=== PATIENT | female | born 1990 | race Two or more races ===

== ENCOUNTER 2017-01-11 11:18 | Day surgery (SDC) | payer OTHER ==
[2017-01-07 09:32] LABS: APPEARANCE,URINE CLEAR; BILIRUBIN,URINE NEGATIVE (NEGATIVE); GLUCOSE, URINE NEGATIVE (NEGATIVE); KETONES,URINE NEGATIVE (NEGATIVE); LEUKOCYTE ESTERASE,URINE NEGATIVE (NEGATIVE); NITRITE,URINE NEGATIVE (NEGATIVE); PROTEIN,URINE NEGATIVE (NEGATIVE); UROBILINOGEN,URINE NEGATIVE mg/dL (<2.0)
[2017-01-07 10:00] LABS: HEMOGLOBIN 13.2 g/dL (12.0-15.5); HGB HCT DIFFERENCE 0.6; MEAN CORPUSCULAR HGB CONC 33.8 g/dL (32.0-36.0); MEAN CORPUSCULAR VOLUME 86 fl (80-97); RED BLOOD COUNT 4.55 10^6/uL (3.72-5.28); RED CELL DISTRIBUTION WIDTH 12.7 % (11.5-14.0); WHITE BLOOD COUNT 5.9 10^3/uL (4.0-10.5)
[2017-01-07 10:13] LABS: ALANINE AMINOTRANSFERASE 27 U/L (9-52); ALKALINE PHOSPHATASE 72 U/L (38-126); ANION GAP 13 (5-19); ASPARTATE AMINO TRANSFERASE 17 U/L (14-36); BILIRUBIN,DIRECT 0.2 mg/dL (0.0-0.4); BILIRUBIN,TOTAL 0.4 mg/dL (0.2-1.3); BLOOD UREA NITROGEN 15 mg/dL (7-20); CALCIUM 9.2 mg/dL (8.4-10.2); CARBON DIOXIDE 26 mmol/L (22-30); CHLORIDE 103 mmol/L (98-107); CREATININE RESULT 0.74 mg/dL (0.52-1.25); GLUCOSE 94 mg/dL (75-110); POTASSIUM 4.3 mmol/L (3.6-5.0); SODIUM 141.9 mmol/L (137-145)
[~2017-01-11 11:18] MED LIST: DOXYCYCLINE HYCLATE 100 MG TABLET PO PRN; GABAPENTIN 400 MG CAPSULE PO PRN; LIDOCAINE 0.5% INJ-PF (5 MG/ML) 50 ML SDV SUBCUT PRN; RINGERS SOLUTION,LACTATED 1,000 ML IV PRN
[2017-01-11] MEDS ORDERED: LIDOCAINE 2% INJ-PF (20 MG/ML) 10 ML AMPUL ONE (12:34)
[2017-01-11] MEDS ORDERED: HYDROMORPHONE HCL INJ/PF 2 MG/ML AMPULE ONE (12:35)
[2017-01-11] MEDS ORDERED: PROPOFOL INJ 200 MG/20 ML VIAL IV ONE (12:35)
[2017-01-11] MEDS ORDERED: MIDAZOLAM 2 MG/2 ML INJ ONE (12:35)
[2017-01-11] MEDS ORDERED: DEXAMETHASONE SOD PHOSPHATE INJ 4 MG/1 ML VIAL ONE (12:35)
[2017-01-11] MEDS ORDERED: ONDANSETRON HCL INJ/PF 4 MG/2 ML SDV ONE (12:35)
[2017-01-11] MEDS ORDERED: FENTANYL CITRATE INJ/PF 100 MCG/2 ML AMPUL ONE (12:35)
[2017-01-11] MEDS ORDERED: IBUPROFEN INJ 800 MG/8 ML VIAL IV ONE (12:36)
[2017-01-11] MEDS ORDERED: LIDOCAINE 1% INJ-PF (10 MG/ML) 30 ML SDV ONE (12:37)
[2017-01-11] MEDS ORDERED: BUPIVACAINE HCL 0.25% /EPINEPHRINE INJ/PF 30 ML SDV ONE (12:37)
[2017-01-11] MEDS ORDERED: METOCLOPRAMIDE HCL INJ/PF 10 MG/2 ML SDV ONE (12:50)
[2017-01-11] MEDS ORDERED: MORPHINE SULFATE 10 MG/ML INJ IV PRN (13:30)
[2017-01-11] MEDS ORDERED: FENTANYL CITRATE INJ/PF 100 MCG/2 ML AMPUL IV PRN ×3 (13:30)
[2017-01-11] MEDS ORDERED: DIPHENHYDRAMINE HCL 50 MG/ML VIAL IV PRN (13:30)
[2017-01-11] MEDS ORDERED: OXYCODONE-ACETAMINOPHEN 5-325 MG TABLET PO PRN ×3 (13:30→14:35)
[2017-01-11] MEDS ORDERED: MEPERIDINE HCL/PF INJ 25 MG/1 ML DISP.SYRIN IV PRN (13:30)
[2017-01-11] MEDS ORDERED: PROMETHAZINE HCL INJ 25 MG/1 ML VIAL IV PRN ×2 (13:30)
[2017-01-11] MEDS ORDERED: ONDANSETRON HCL INJ/PF 4 MG/2 ML SDV IV PRN ×2 (13:30→14:36)
--- NOTE | 2017-01-11 13:55 | PDOC DISCHARGE SUMMARY ---
Discharge Summary (SDC) - Discharge Final Diagnosis: Endometrial polyps infertility Date of Surgery: 01/11/17 Discharge Date: 01/11/17 Condition: Good Forms: Post Operative Treatment or Instructions: Hysterscopic polypectomy Dilation and Curettage Prescriptions: Acetaminophen [Tylenol] 325 mg PO QID #100 tablet Ibuprofen [Motrin 800 mg Tablet] 800 mg PO Q8H PRN #30 tab PRN Reason: Referrals: MYAH PEARCE MD [NO LOCAL MD] - (Call mortgage processing manager RN at [phone] for questions /concerns and to make a 2 week follow up appointment. ) Discharge Diet: As Tolerated Respiratory Treatments at Home: Deep Breathing/Coughing Discharge Activity: Activity As Tolerated, Balance Activity w/Rest, Pelvic Rest - for 2 weeks, No tub bath - you may shower Home Care Assistance: None Needed Report the Following to Your Physician Immediately: Vomiting, Increase in Pain, Fever over 101 Degrees, Drainage-Foul Smelling, Increased Vaginal Bleed, Large Clots
[2017-01-11 17:26] VITALS: BP 124/88
--- NOTE | 2017-01-12 09:58 | OPERATIVE REPORT E ---
Operative Report NAME: MT MYERS : 1990 AGE: 26Y DATE OF SURGERY: 01/11/2017 ROOM: PREOPERATIVE DIAGNOSIS: SUSPECTED ENDOUTERINE ENDOMETRIAL POLYP AND INFERTILITY. POSTOPERATIVE DIAGNOSIS: SUSPECTED ENDOUTERINE ENDOMETRIAL POLYP AND INFERTILITY. OPERATION: 1. Hysteroscopic polypectomy. 2. D and C. SURGEON: MYAH PEARCE M.D. FOOT ROENTGENOLOGIST: None. ANESTHESIA: MAC. COMPLICATIONS: None. ESTIMATED BLOOD LOSS: 10 mL. URINE OUTPUT: Clear at the end of the procedure; 50 mL. FLUID DEFICIT: 100 mL of normal saline. SPECIMENS: 1. Endometrial curettings. 2. Polypoid tissue in the MyoSure trap. FINDINGS: 1. Thickened endometrial cavity. 2. Bilateral tubal ostia apparent. 3. Sessile appearing polyps in the anterior uterine wall near both the left and right cornua. INDICATIONS AND INFORMED CONSENT: The risks, benefits, and alternatives of hysteroscopic polypectomy and D and C were discussed with the patient, including but not limited to, infection; allergic reaction; scarring; blood loss; injury to the uterus including perforation, damage to the cervix, tubes, or ovaries, bladder or ureter; fistula; injury to blood vessels; need for a second operation; and potential for inability to get or endometrial scarring; need for a blood transfusion or a possible laparotomy to complete the surgery or any repair. Alternatives including, but not limited to, observation, medical management, and other surgical approaches were discussed with the patient and she consented to the above procedure. PROCEDURE: The patient was taken to the operating room where MAC and general anesthesia was undertaken. A vaginal exam was performed and the uterus was noted to be retroverted and small and mobile. She was then prepped and draped in the usual sterile fashion in a dorsal lithotomy position. Patient had been noted to just have emptied her bladder prior to surgery, so bladder was not drained at the beginning. A weighted speculum was placed into the vagina after a surgical time out was held. Anterior lip of the cervix was grasped and pulled into view. After the hysteroscope was set up and primed with normal saline, it was attempted to be placed into the cervical os. This was unable to be advanced. Jeanette dilators were used to gently dilate the cervix and the anterior cervical os. At this point, the tenaculum was noted to have torn off the cervix. Visual inspection revealed a small laceration to the anterior part of the cervix. Tenaculum was re-placed, re-grasped in a slightly different position to the patient's left of the previous site. After this, the hysteroscope was placed into the cervical os and advanced slowly into the uterine cavity under direct visualization, using hydrodissection as a means of final dilation. Next, inspection of the uterine cavity was performed revealing the above findings. The bilateral tubal ostia were visualized and several pictures were taken. At this point, the MyoSure device was introduced into the uterine cavity and was used to remove the polyps of the anterior endometrial wall near the cornua on both sides, as discussed. Some thickening of the uterine lining was also removed posteriorly with the MyoSure device. At this point, the instruments were removed from the uterus then a gentle, sharp curettage was performed until a slightly gritty texture was apparent in all areas of the uterine cavity, bimanual field. At this point, the endometrial curetting specimen was passed off and sent for pathology. Hemostasis was noted to be excellent at the cervical os. Single tooth tenaculum was removed from the cervix. At this time, a 3-0 Vicryl suture was used to repair the cervical laceration previously noted in a running fashion. Repair and hemostasis of this area was noted to be excellent. At this point, a Red Jose D catheter was used to drain the bladder; 50 mL of clear urine were drained at the end of the procedure. The total fluid deficit was noted above. All instruments and sponges were removed from the vagina and the count was correct at the end of the procedure, and the patient was taken to recovery in stable condition, and the patient was taken to recovery in stable condition. DICTATING PHYSICIAN: MYAH PEARCE M.D. [id number] PHY#: [id number] ID: [id number] JOB#: [id number] ACCT: [id number] cc:MYAH PEARCE M.D. >
== END 2017-01-11 16:10 | disposition home or self-care (01) ==
LOC: OROUT 11:18 → EDBD 13:30 → OROUT 16:10
PROVIDERS: ATTEND Obstetrics & Gynecology
PROC: 0UDB8ZX Extraction of Endometrium, Via Natural or Artificial Opening Endoscopic, Diagnostic (ICD-10-PCS; 2017-01-11)
PROC: 0UB98ZX Excision of Uterus, Via Natural or Artificial Opening Endoscopic, Diagnostic (ICD-10-PCS; principal; 2017-01-11 13:30)
DX: N84.0 Polyp of corpus uteri (principal)
CPT/HCPCS: 86900; 86901; 36415; 86850; 85027; 81025; 80053; 81001; 88305 ×2; 58558; J2250; J1100; J2765; J1170; J2405; J2704; J3490; J1741; 952; J3010